=== PATIENT | male | born 1995 | race Caucasian/White ===

== ENCOUNTER 2019-08-24 00:41 | Emergency (ER) | payer BC, OTHER ==
[~2019-08-24] VITALS: Ht 190.5 cm; Wt 126.0 kg
[2019-08-24] MEDS ORDERED: EPINEPHRINE 1 MG/ML, 1ML ONE (00:44)
[2019-08-24] MEDS ORDERED: FAMOTIDINE 20 MG/2 ML ONE (00:44)
[2019-08-24 00:49] VITALS: BP 144/82
[2019-08-24] MEDS ORDERED: methylPREDNISolone SOD SUCC 125 MG/2 ML ONE (00:53)
[2019-08-24] MEDS ORDERED: FAMOTIDINE 20 MG/2 ML IVPush ONE (01:00)
[2019-08-24] MEDS ORDERED: PLEASE ENTER ALLERGIES MC SCH (01:00)
[2019-08-24] MEDS ORDERED: EPINEPHRINE 1 MG/ML, 1ML SQ ONE (01:00)
[2019-08-24] MEDS ORDERED: methylPREDNISolone SOD SUCC 125 MG/2 ML IVPush ONE (01:00)
--- NOTE | 2019-08-24 01:10 | NUR ---
Pt began vomitting with epistaxis noted. Pt states he frequently gets bloody noses, so this is not uncommon. Pt states he feels better after vomitting.
== END 2019-08-24 02:51 | disposition home or self-care (01) ==
LOC: ED 01:11
DX: J98.01 Acute bronchospasm (principal); T78.1XXA Other adverse food reactions, not elsewhere classified, initial encounter; X58.XXXA Exposure to other specified factors, initial encounter; Y93.89 Activity, other specified; Y92.89 Other specified places as the place of occurrence of the external cause; Y99.8 Other external cause status
CPT/HCPCS: 93005; 96372; 96374; 96375; 99284; J0171; J2930; J3490; 99285